=== PATIENT | female | born 1950 | race Hispanic/Latino ===

== ENCOUNTER 2018-04-13 04:20 | Emergency (ER) | payer MEDICARE ==
[2018-04-13] MEDS ORDERED: ONDANSETRON ODT 4 MG TAB ONE (04:41)
[2018-04-13] MEDS ORDERED: MORPHINE SULFATE 4 MG/1ML SYG ONE (04:41)
== END 2018-04-13 05:42 | disposition home or self-care (01) ==
LOC: EDH 04:20
DX: S96.912A Strain of unspecified muscle and tendon at ankle and foot level, left foot, initial encounter (principal); S96.911A Strain of unspecified muscle and tendon at ankle and foot level, right foot, initial encounter; S80.02XA Contusion of left knee, initial encounter; S80.01XA Contusion of right knee, initial encounter; Z90.710 Acquired absence of both cervix and uterus; W01.0XXA Fall on same level from slipping, tripping and stumbling without subsequent striking against object, initial encounter; Y93.89 Activity, other specified; Y92.89 Other specified places as the place of occurrence of the external cause; Y99.8 Other external cause status
CPT/HCPCS: 73562 ×2; 73610 ×2; 96372; 99283; J2270